=== PATIENT | female | born 1950 | race Asian ===

== ENCOUNTER 2021-11-04 00:51 | Inpatient (IN) | payer OTHER ==
[~2021-11-04] VITALS: Ht 157.5 cm; Wt 49.9 kg
[2021-11-04 01:58] VITALS: BP_SYST 127
[2021-11-04] MEDS ORDERED: HALOPERIDOL LACTATE 5 MG/ML VIAL IM ONE (02:00)
[2021-11-04] MEDS ORDERED: LORazepam 2 MG/ML VIAL IM ONE (02:00)
[2021-11-04] MEDS ORDERED: LORazepam 2 MG/ML VIAL ONE (02:08)
[2021-11-04] MEDS ORDERED: HALOPERIDOL LACTATE 5 MG/ML VIAL ONE (02:08)
[2021-11-04] MEDS ORDERED: NACL 0.9% 1,000 ML IV ONE (02:15)
[2021-11-04 02:50] LABS: BASOPHILS % (AUTO) 0.5 % (0.0-2.0); EOSINOPHILS # (AUTO) 0.3 K/uL (0.0-0.4); EOSINOPHILS % (AUTO) 4.1 % (0.0-4.0); HEMATOCRIT 34.7 % (36-48); HEMOGLOBIN 10.9 g/dL (12.0-16.0); LYMPHOCYTES # (AUTO) 1.9 K/uL (1.0-5.5); LYMPHOCYTES % (AUTO) 27.5 % (20.5-51.5); MEAN CORPUSCULAR HEMOGLOBIN 27 pg (27-31); MEAN CORPUSCULAR HGB CONC 32 % (32-36); MEAN CORPUSCULAR VOLUME 84 fL (79.0-98.0); MONOCYTES # (AUTO) 0.8 K/uL (0.0-1.0); MONOCYTES % (AUTO) 10.9 % (1.7-9.3); PLATELET COUNT (AUTO) 131 K/uL (130-430); RED BLOOD CELL COUNT(AUTO) 4.12 MIL/uL (4.2-6.2); RED CELL DISTRIBUTION WIDTH 19.6 % (9.0-15.0)
[2021-11-04 03:04] LABS: CREATININE 1.25 mg/dL (0.55-1.30)
[2021-11-04 03:10] LABS: ALBUMIN 2.8 g/dL (3.4-4.8); TOTAL BILIRUBIN 0.4 mg/dL (0.0-1.0)
[2021-11-04 03:17] LABS: POTASSIUM 2.6 mmol/L (3.5-5.1)
[2021-11-04] MEDS ORDERED: KCL 10 mEq in 50 mL (PREMIX) 50 ML IV ONE ×3 (03:30→21:38)
[2021-11-04] MEDS ORDERED: D5W 1,000 ML IV ONE (03:30)
[2021-11-04] MEDS ORDERED: POTASSIUM CHLORIDE 20 MEQ TAB.PRT.SR PO ONE (03:30)
[2021-11-04 06:12] LABS: BILIRUBIN,URINE NEGATIVE (NEGATIVE); BLOOD, URINE 2+ (NEGATIVE); CLARITY/URINE HAZY (CLEAR); COLOR,URINE YELLOW (YELLOW); GLUCOSE,URINE NEGATIVE (NEGATIVE); KETONES,URINE TRACE (NEGATIVE); LEUKOCYTE ESTERASE ,URINE 1+ (NEGATIVE); NITRITE, URINE NEGATIVE (NEGATIVE); PROTEIN URINE TRACE (NEGATIVE); UROBILINOGEN,URINE 0.2 (0.2-1.0)
[2021-11-04 06:18] LABS: BACTERIA,URINE FEW /HPF (None Seen)
[2021-11-04 06:19] LABS: MUCUS,URINE 1+ /LPF (None Seen)
[2021-11-04] MEDS ORDERED: MUPIROCIN 2% TOPICAL OINTMENT 22 GM NS PRN (08:00)
[2021-11-04] MEDS ORDERED: ACETAMINOPHEN 325 MG TABLET PO PRN (08:00)
[2021-11-04] MEDS ORDERED: NALOXONE HCL 0.4 MG/ML AMP (NARCAN) IVP PRN ×2 (08:00)
[2021-11-04] MEDS ORDERED: ZOLPIDEM TARTRATE 5 MG TABLET PO PRN (08:00)
[2021-11-04] MEDS ORDERED: MORPHINE 2 MG/ML INJ. SYRINGE IVP PRN ×2 (08:00)
[2021-11-04] MEDS ORDERED: ONDANSETRON HCL 4 MG/2 ML VIAL IVP PRN (08:00)
[2021-11-04] MEDS ORDERED: MAGNESIUM SULFATE 50 ML IV PRN (08:00)
[2021-11-04] MEDS ORDERED: DOCUSATE SODIUM 100 MG CAPSULE PO PRN (08:00)
[2021-11-04 08:22] LABS: CALCIUM 7.8 mg/dL (8.4-11.0); CREATININE 1.14 mg/dL (0.55-1.30)
[2021-11-04 08:44] LABS: POTASSIUM 2.8 mmol/L (3.5-5.1)
[2021-11-04] MEDS: cefTRIAXone 1 GM in D5W 50 ML IV SCH ×2 (10:31→11:00)
[2021-11-04] MEDS: KCL 20 mEq in 100 mL (PREMIX) 100 ML IV SCH ×2 (11:00→13:00)
[2021-11-04] MEDS: LORazepam 1 MG TABLET PO PRN ×2 (11:35→17:01)
[2021-11-04] MEDS: POTASSIUM CHLORIDE 20 MEQ TAB.PRT.SR PO PRN (11:35)
[2021-11-04] MEDS: POTASSIUM CHLORIDE 10 MEQ in NACL 0.9% 1,000 ML IV SCH ×2 (13:35→22:57)
[2021-11-04 18:28] LABS: BILIRUBIN,URINE NEGATIVE (NEGATIVE); BLOOD, URINE 2+ (NEGATIVE); CLARITY/URINE SL CLOUDY (CLEAR); COLOR,URINE YELLOW (YELLOW); GLUCOSE,URINE NEGATIVE (NEGATIVE); KETONES,URINE NEGATIVE (NEGATIVE); LEUKOCYTE ESTERASE ,URINE 1+ (NEGATIVE); NITRITE, URINE NEGATIVE (NEGATIVE); PH,URINE 6.5 (5.0-8.0); PROTEIN URINE NEGATIVE (NEGATIVE); UROBILINOGEN,URINE 0.2 (0.2-1.0)
[2021-11-04 18:38] LABS: BACTERIA,URINE RARE /HPF (None Seen); WBC,URINE 0-3 /HPF (0-3)
[2021-11-04 20:04] VITALS: BP_SYST 103
[2021-11-04 21:23] VITALS: BP_SYST 124
[2021-11-05 01:46] VITALS: BP_SYST 114
[2021-11-05 07:22] LABS: CALCIUM 7.9 mg/dL (8.4-11.0); CREATININE 0.83 mg/dL (0.55-1.30); POTASSIUM 3.2 mmol/L (3.5-5.1)
[2021-11-05 08:00] VITALS: BP_SYST 116
[2021-11-05] MEDS: KCL 20 mEq in D5W 1000 mL 1,000 ML IV ONE ×2 (10:09→10:18)
[2021-11-05] MEDS: cefTRIAXone 1 GM in D5W 50 ML IV SCH (10:21)
[2021-11-05 11:57] LABS: HEMATOCRIT 33.4 % (36-48); HEMOGLOBIN 10.7 g/dL (12.0-16.0); MEAN CORPUSCULAR HEMOGLOBIN 27 pg (27-31); MEAN CORPUSCULAR HGB CONC 32 % (32-36); MEAN CORPUSCULAR VOLUME 84 fL (79.0-98.0); RED BLOOD CELL COUNT(AUTO) 3.96 MIL/uL (4.2-6.2)
[2021-11-05 11:59] LABS: BASOPHILS % (AUTO) 0.3 % (0.0-2.0); EOSINOPHILS # (AUTO) 0.2 K/uL (0.0-0.4); EOSINOPHILS % (AUTO) 3.9 % (0.0-4.0); LYMPHOCYTES # (AUTO) 1.2 K/uL (1.0-5.5); LYMPHOCYTES % (AUTO) 19.5 % (20.5-51.5); MONOCYTES # (AUTO) 0.7 K/uL (0.0-1.0); MONOCYTES % (AUTO) 10.4 % (1.7-9.3); NEUTROPHILS # (AUTO) 4.2 K/uL (1.8-7.7); NEUTROPHILS % (AUTO) 65.9 % (40.0-70.0); PLATELET COUNT (AUTO) 132 K/uL (130-430); RED CELL DISTRIBUTION WIDTH 19.9 % (9.0-15.0)
[2021-11-05 12:00] LABS: WHITE BLOOD COUNT (AUTO) 6.3 K/uL (4.8-10.8)
[2021-11-05 14:07] VITALS: BP_SYST 118
[2021-11-05 16:00] VITALS: BP_SYST 120
[2021-11-05] MEDS: LORazepam 2 MG/ML VIAL IVP PRN (16:40)
[2021-11-05 20:00] VITALS: BP_SYST 121
[2021-11-06 00:45] VITALS: BP_SYST 122
[2021-11-06 07:19] LABS: BASOPHILS % (AUTO) 0.3 % (0.0-2.0); EOSINOPHILS # (AUTO) 0.1 K/uL (0.0-0.4); EOSINOPHILS % (AUTO) 1.2 % (0.0-4.0); HEMATOCRIT 37.9 % (36-48); LYMPHOCYTES % (AUTO) 10.9 % (20.5-51.5); MEAN CORPUSCULAR VOLUME 84 fL (79.0-98.0); MONOCYTES # (AUTO) 0.6 K/uL (0.0-1.0); MONOCYTES % (AUTO) 6.8 % (1.7-9.3); NEUTROPHILS # (AUTO) 7.5 K/uL (1.8-7.7); NEUTROPHILS % (AUTO) 80.8 % (40.0-70.0); PLATELET COUNT (AUTO) 158 K/uL (130-430); RED BLOOD CELL COUNT(AUTO) 4.53 MIL/uL (4.2-6.2); RED CELL DISTRIBUTION WIDTH 19.9 % (9.0-15.0); WHITE BLOOD COUNT (AUTO) 9.3 K/uL (4.8-10.8)
[2021-11-06 07:42] LABS: CALCIUM 9.1 mg/dL (8.4-11.0); CREATININE 0.92 mg/dL (0.55-1.30)
[2021-11-06 08:00] VITALS: BP_SYST 132
[2021-11-06 09:32] LABS: POTASSIUM 2.6 mmol/L (3.5-5.1)
[2021-11-06] MEDS: POTASSIUM CHLORIDE 20 MEQ TAB.PRT.SR PO PRN (09:49)
[2021-11-06] MEDS ORDERED: POTASSIUM CHLORIDE 20 MEQ TAB.PRT.SR PO ONE (10:15)
[2021-11-06] MEDS: cefTRIAXone 1 GM in D5W 50 ML IV SCH (11:15)
[2021-11-06 12:00] VITALS: BP_SYST 136
[2021-11-06 12:40] LABS: HEMOGLOBIN 12.3 g/dL (12.0-16.0); MEAN CORPUSCULAR HEMOGLOBIN 27 pg (27-31); MEAN CORPUSCULAR HGB CONC 32 % (32-36)
[2021-11-06 16:00] VITALS: BP_SYST 124
[2021-11-06 20:02] VITALS: BP_SYST 116
[2021-11-07 01:36] VITALS: BP_SYST 133
[2021-11-07 08:00] VITALS: BP_SYST 120
[2021-11-07 12:00] VITALS: BP_SYST 122
[2021-11-07] MEDS: cefTRIAXone 1 GM in D5W 50 ML IV SCH ×2 (12:28→12:50)
[2021-11-07 13:42] LABS: BASOPHILS % (AUTO) 0.5 % (0.0-2.0); EOSINOPHILS # (AUTO) 0.2 K/uL (0.0-0.4); EOSINOPHILS % (AUTO) 3.1 % (0.0-4.0); HEMATOCRIT 42.4 % (36-48); LYMPHOCYTES # (AUTO) 1.2 K/uL (1.0-5.5); LYMPHOCYTES % (AUTO) 18.9 % (20.5-51.5); MEAN CORPUSCULAR VOLUME 83 fL (79.0-98.0); MONOCYTES # (AUTO) 0.5 K/uL (0.0-1.0); MONOCYTES % (AUTO) 7.7 % (1.7-9.3); NEUTROPHILS # (AUTO) 4.5 K/uL (1.8-7.7); NEUTROPHILS % (AUTO) 69.8 % (40.0-70.0); PLATELET COUNT (AUTO) 175 K/uL (130-430); RED BLOOD CELL COUNT(AUTO) 5.14 MIL/uL (4.2-6.2); RED CELL DISTRIBUTION WIDTH 20.2 % (9.0-15.0); WHITE BLOOD COUNT (AUTO) 6.4 K/uL (4.8-10.8)
[2021-11-07 13:54] LABS: CALCIUM 9.3 mg/dL (8.4-11.0); CREATININE 0.81 mg/dL (0.55-1.30); POTASSIUM 3.7 mmol/L (3.5-5.1)
[2021-11-07 17:37] VITALS: BP_SYST 121
[2021-11-07 20:28] VITALS: BP_SYST 126
[2021-11-08] MEDS: LORazepam 2 MG/ML VIAL IVP PRN (05:31)
[2021-11-08 07:35] VITALS: BP_SYST 147
[2021-11-08 09:35] LABS: BASOPHILS % (AUTO) 0.5 % (0.0-2.0); EOSINOPHILS # (AUTO) 0.2 K/uL (0.0-0.4); EOSINOPHILS % (AUTO) 2.3 % (0.0-4.0); HEMATOCRIT 39.2 % (36-48); LYMPHOCYTES # (AUTO) 1.5 K/uL (1.0-5.5); LYMPHOCYTES % (AUTO) 16.6 % (20.5-51.5); MEAN CORPUSCULAR VOLUME 82 fL (79.0-98.0); MONOCYTES # (AUTO) 0.8 K/uL (0.0-1.0); MONOCYTES % (AUTO) 9.1 % (1.7-9.3); NEUTROPHILS # (AUTO) 6.2 K/uL (1.8-7.7); NEUTROPHILS % (AUTO) 71.5 % (40.0-70.0); PLATELET COUNT (AUTO) 220 K/uL (130-430); RED BLOOD CELL COUNT(AUTO) 4.79 MIL/uL (4.2-6.2); RED CELL DISTRIBUTION WIDTH 20.8 % (9.0-15.0); WHITE BLOOD COUNT (AUTO) 8.7 K/uL (4.8-10.8)
[2021-11-08 10:20] LABS: CALCIUM 9.5 mg/dL (8.4-11.0); CREATININE 0.91 mg/dL (0.55-1.30); POTASSIUM 3.2 mmol/L (3.5-5.1)
[2021-11-08 12:00] VITALS: BP_SYST 133
[2021-11-08] MEDS ORDERED: HALOPERIDOL LACTATE 5 MG/ML VIAL IM ONE (12:00)
[2021-11-08] MEDS: POTASSIUM CHLORIDE 20 MEQ TAB.PRT.SR PO PRN ×2 (13:36→20:40)
[2021-11-08 16:00] VITALS: BP_SYST 137
[2021-11-08] MEDS ORDERED: LORazepam 1 MG TABLET PO PRN (17:45)
[2021-11-08 20:00] VITALS: BP_SYST 136
[2021-11-09] VITALS: BP_SYST 144
[2021-11-09 07:11] LABS: BASOPHILS # (AUTO) 0.1 K/uL (0.0-0.2); EOSINOPHILS # (AUTO) 0.3 K/uL (0.0-0.4); LYMPHOCYTES # (AUTO) 1.3 K/uL (1.0-5.5); MEAN CORPUSCULAR VOLUME 82 fL (79.0-98.0); MONOCYTES # (AUTO) 0.7 K/uL (0.0-1.0); RED BLOOD CELL COUNT(AUTO) 4.61 MIL/uL (4.2-6.2)
[2021-11-09 07:40] LABS: WHITE BLOOD COUNT (AUTO) 6.7 K/uL (4.8-10.8)
[2021-11-09 07:41] LABS: BASOPHILS % (AUTO) 0.8 % (0.0-2.0); EOSINOPHILS % (AUTO) 4.1 % (0.0-4.0); HEMATOCRIT 37.8 % (36-48); LYMPHOCYTES % (AUTO) 19.2 % (20.5-51.5); MONOCYTES % (AUTO) 10.2 % (1.7-9.3); NEUTROPHILS # (AUTO) 4.4 K/uL (1.8-7.7); NEUTROPHILS % (AUTO) 65.7 % (40.0-70.0); PLATELET COUNT (AUTO) 259 K/uL (130-430); RED CELL DISTRIBUTION WIDTH 21.3 % (9.0-15.0)
[2021-11-09 08:00] VITALS: BP_SYST 121
[2021-11-09 08:00] LABS: CALCIUM 9.5 mg/dL (8.4-11.0); CREATININE 0.92 mg/dL (0.55-1.30); POTASSIUM 5.5 mmol/L (3.5-5.1)
[2021-11-09] MEDS ORDERED: QUEtiapine FUMARATE 25 MG TABLET PO ONE (09:00)
[2021-11-09] MEDS: HALOPERIDOL LACTATE 5 MG/ML VIAL IM PRN ×2 (10:18→15:50)
[2021-11-09] MEDS ORDERED: SODIUM POLYSTYRENE SULFONATE 15 GM/60 ML UDBTL PO ONE (10:45)
[2021-11-09] MEDS: cefTRIAXone 1 GM in D5W 50 ML IV SCH (11:00)
[2021-11-09 11:17] VITALS: BP_SYST 134
[2021-11-09 15:47] VITALS: BP_SYST 138
[2021-11-09 20:00] VITALS: BP_SYST 137
[2021-11-09] MEDS: QUEtiapine FUMARATE 25 MG TABLET PO SCH (22:04)
[2021-11-10] VITALS (8 sets, daily range): BP systolic 107–135
[2021-11-10 07:55] LABS: CALCIUM 9.1 mg/dL (8.4-11.0); CREATININE 0.81 mg/dL (0.55-1.30); POTASSIUM 3.4 mmol/L (3.5-5.1)
[2021-11-10] MEDS: QUEtiapine FUMARATE 25 MG TABLET PO SCH ×2 (10:24→20:51)
[2021-11-10] MEDS: cefTRIAXone 1 GM in D5W 50 ML IV SCH (11:00)
[2021-11-10] MEDS: POTASSIUM CHLORIDE 20 MEQ TAB.PRT.SR PO PRN (18:15)
[2021-11-11] VITALS: BP_SYST 125
[2021-11-11 04:35] VITALS: BP_SYST 125
[2021-11-11 08:00] VITALS: BP_SYST 130
[2021-11-11] MEDS ORDERED: HALOPERIDOL LACTATE 5 MG/ML VIAL IM PRN (08:00)
[2021-11-11] MEDS ORDERED: QUEtiapine FUMARATE 25 MG TABLET PO SCH (09:00)
[2021-11-11 12:00] VITALS: BP_SYST 130; BP_SYST 97
[2021-11-11 15:41] VITALS: BP_SYST 97
[2021-11-11 16:00] VITALS: BP_SYST 105
== END 2021-11-11 17:00 | disposition home health service (06) | DRG 682 ==
LOC: SED 00:51 → STU 06:16
PROVIDERS: ADMIT Family Medicine; ATTEND Family Medicine
PROC: 0T9B70Z Drainage of Bladder with Drainage Device, Via Natural or Artificial Opening (ICD-10-PCS; principal; 2021-11-04)
DX: N17.0 Acute kidney failure with tubular necrosis (principal); E43 Unspecified severe protein-calorie malnutrition; G93.41 Metabolic encephalopathy; N39.0 Urinary tract infection, site not specified; E87.1 Hypo-osmolality and hyponatremia; E87.0 Hyperosmolality and hypernatremia; E87.6 Hypokalemia; G30.9 Alzheimer's disease, unspecified; Z20.822 Contact with and (suspected) exposure to COVID-19; E87.8 Other disorders of electrolyte and fluid balance, not elsewhere classified; F02.80 Dementia in other diseases classified elsewhere, unspecified severity, without behavioral disturbance, psychotic disturbance, mood disturbance, and anxiety; Z85.3 Personal history of malignant neoplasm of breast
CPT/HCPCS: 36415; 76376; 76770; 80048; 80053; 81000; 83690; 83735; 85025; 87081; 87086; 96360; 96361; 96372; 97110-GP; 97112-GP; 97530-GP; 99285; G0378; J0696; J1630; J2060; J3475; J3480; J7030; J7060